=== PATIENT | male | born 1965 | race Caucasian/White ===

== ENCOUNTER 2018-07-04 11:30 | Inpatient (IN) | payer OTHER ==
[2018-07-08 14:32] VITALS: BMI 32.8
[2018-07-09] MEDS ORDERED: GENTAMICIN SO4 80 MG/2 ML VIAL ONE (07:28)
[2018-07-09] MEDS ORDERED: THROMBIN (BOVINE) 20,000 UNIT VIAL TP ONE (07:29)
[2018-07-09] MEDS ORDERED: LIDOCAINE 1%-EPI 1:100,000 30 ML MDV IJ ONE (07:29)
[2018-07-09] MEDS ORDERED: MIDAZOLAM HCL 2 MG/2 ML SINGLE DOSE VIAL ONE ×2 (07:54)
--- NOTE | 2018-07-09 07:59 | HP ---
History & Physical Update - Physical Physical: No Change - Assessment Assessment: No Change - Plan Plan: No Change (Preop medical clearance/Cardiology clearance/stress test 2018. No changes since, no h/o dvt/pe)
[2018-07-09] MEDS ORDERED: fentaNYL CITRATE 250 MCG/5 ML VIAL ONE (08:00)
[2018-07-09] MEDS ORDERED: ROCURONIUM BROMIDE 50 MG/5 ML VIAL ONE ×2 (08:00→08:37)
[2018-07-09] MEDS ORDERED: PROPOFOL 20 ML ONE ×2 (08:00)
[2018-07-09] MEDS ORDERED: ceFAZolin SODIUM 1 GM VIAL IVPB ONE (08:10)
[2018-07-09] MEDS ORDERED: VANCOMYCIN 1,000 MG VIAL (RESTRICTED TO ID ONLY) IVPB ONE (08:15)
[2018-07-09] MEDS ORDERED: LIDOCAINE HCL 1%, 10 MG/ML (20ML VIAL) NR ONE (08:25)
[2018-07-09] MEDS ORDERED: GELATIN, ABSORBABLE 12-7MM EACH SPONGE TP ONE (08:40)
[2018-07-09] MEDS ORDERED: HYDROGEN PEROXIDE 473 ML PO ONE (09:15)
[2018-07-09] MEDS ORDERED: BACITRACIN 50,000 UNITS VIAL TP ONE (09:16)
[2018-07-09] MEDS ORDERED: GENTAMICIN 80MG PREMIX BAG IVPB ONE (09:16)
[2018-07-09] MEDS ORDERED: NEOSTIGMINE METHYLSULFATE 0.5 MG/1 ML - 10 ML MDV ONE ×5 (09:36)
--- NOTE | 2018-07-09 10:01 | OP ---
Operative Note - Note: Operative Date: 07/09/18 Pre-Operative Diagnosis: C5-6 spondylosis Operation: 1. Interbody Cage. 2. C5 Caudal Hemicorpectomy with resection of osteophytes and posterior longitudnal ligament. 3. C6 Rostral Hemicorpectomy with resection of osteophytes and posterior longitudnal ligament. 4. Anterior Instrumentation C5-C6. 5. Microdissection. 6. C56 Arthrodesis. 7. Local allograft. 8. Deformity correction (caodaism of lordosis) Findings: as dictated Implants: as dictated Post-Operative Diagnosis: Same as Pre-op Surgeon: Jerald Rogers Container Filler: Yaz Mock Anesthesiologist/EMERGENCY TELECOMMUNICATIONS DISPATCHER: Sena Baldwin MD Anesthesia: General, Local Estimated Blood Loss (mls): 10 (ml) Drains & Tubes with Location: subcutaneous [place]man Drains, Volume Out (mls): 100 (ml clear urine) Fluid Volume Replaced (mls): 1,100 (LR)
[2018-07-09] MEDS ORDERED: HYDROmorphone *PCA* 10MG/50ML DISP.SYRIN PCA ONE (10:07)
[2018-07-09] MEDS ORDERED: ONDANSETRON 4 MG/2 ML VIAL IVPUSH PRN ×3 (10:10→10:32)
[2018-07-09] MEDS ORDERED: diphenhydrAMINE HCL 25 MG CAPSULE (FP) PO PRN (10:10)
[2018-07-09] MEDS ORDERED: LACTATED RINGERS SOLUTION 1,000 ML/1,000 ML INFUS.BAG IV SCH (10:15)
[2018-07-09] MEDS ORDERED: DEXAMETHASONE SOD PHOSPHATE 4 MG/1 ML VIAL IVPUSH PRN (10:32)
[2018-07-09] MEDS ORDERED: PROMETHAZINE HCL 25 MG/1 ML VIAL IVPB PRN (10:32)
[2018-07-09] MEDS ORDERED: HYDROmorphone *PCA* 10MG/50ML DISP.SYRIN PCA SCH (10:45)
[2018-07-09] MEDS ORDERED: LACTATED RINGERS SOLUTION 1,000 ML IV SCH (10:45)
[2018-07-09] MEDS: DOCUSATE SODIUM 100 MG CAPSULE (FP) PO SCH ×2 (16:30→21:29)
[2018-07-09] MEDS ORDERED: sitaGLIPtin PHOSPHATE 50 MG TABLET PO ONE (16:45)
[2018-07-09] MEDS: CEFAZOLIN 1 GM/D5W 1 GM/50 ML BAG IVPB SCH (16:55)
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
[2018-07-09] MEDS: INSULIN SLIDING SCALE (NOVOLOG) 1 VIAL SQ SCH (17:08)
[2018-07-09] MEDS: ALBUTEROL SO4 2.5/IPRATROPIUM 0.5 INH SOL 3 ML VIAL.NEB. NEB SCH (20:15)
[2018-07-09] MEDS ORDERED: INSULIN (NOVOLOG) ASPART 100 UNITS/ML 10ML VIAL ONE (21:28)
[2018-07-09] MEDS ORDERED: ATORVASTATIN CA 40 MG TABLET (FP) PO SCH (22:00)
[2018-07-10] MEDS: DOCUSATE SODIUM 100 MG CAPSULE (FP) PO SCH (06:00)
[2018-07-10] MEDS: CEFAZOLIN 1 GM/D5W 1 GM/50 ML BAG IVPB SCH ×3 (06:00→09:18)
[2018-07-10] MEDS ORDERED: PT OWN MED DRAWER 7, Y5N ONE (06:14)
[2018-07-10] MEDS ORDERED: INSULIN (NOVOLOG) ASPART 100 UNITS/ML 10ML VIAL ONE (06:20)
[2018-07-10] MEDS: INSULIN SLIDING SCALE (NOVOLOG) 1 VIAL SQ SCH (06:39)
[2018-07-10] MEDS ORDERED: LEVOTHYROXINE NA 88 MCG TABLET (FP) PO SCH (07:00)
[2018-07-10 07:07] LABS: HEMATOCRIT 41.4 % (35.4-49); HEMOGLOBIN 14.1 GM/dL (11.7-16.9); MCH 30.6 pg (25.7-33.7); MCHC 34.2 g/dl (32.0-35.9); MEAN CELL VOLUME 89.4 fl (80-96); PLATELET COUNT 227 K/MM3 (134-434); RBC 4.63 M/mm3 (4.00-5.60); RDW 14.2 % (11.9-15.9); WHITE BLOOD COUNT 14.8 K/mm3 (4.0-10.0)
[2018-07-10 07:28] LABS: ANION GAP 9 MMOL/L (8-16); BLOOD UREA NITROGEN 22 mg/dL (7-18); CALCIUM 8.2 mg/dL (8.5-10.1); CHLORIDE 102 mmol/L (98-107); CO2 27 mmol/L (21-32); CREATININE 1.4 mg/dL (0.55-1.3); GLUCOSE,RANDOM 105 mg/dL (74-106); POTASSIUM 4.2 mmol/L (3.5-5.1); SODIUM 138 mmol/L (136-145)
[2018-07-10] MEDS ORDERED: oxyCODONE HCL 5 MG TABLET PO PRN ×2 (08:06)
[2018-07-10] MEDS ORDERED: ACETAMINOPHEN 325 MG TABLET (FP) PO PRN (08:07)
[2018-07-10] MEDS: ALBUTEROL SO4 2.5/IPRATROPIUM 0.5 INH SOL 3 ML VIAL.NEB. NEB SCH (08:38)
[2018-07-10] MEDS ORDERED: LACTATED RINGERS SOLUTION 1,000 ML/1,000 ML INFUS.BAG IV SCH (09:15)
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
[2018-07-10] MEDS ORDERED: FERROUS SO4 325 MG TABLET (FP) PO SCH (10:00)
[2018-07-10] MEDS ORDERED: HYDROCHLOROTHIAZIDE 25 MG TABLET (FP) PO SCH (10:00)
[2018-07-10] MEDS ORDERED: FOLIC ACID 1 MG TABLET (FP) PO SCH (10:00)
[2018-07-10] MEDS ORDERED: LISINOPRIL 20 MG TABLET (FP) PO SCH (10:00)
[2018-07-10] MEDS ORDERED: MONTELUKAST NA 10 MG TABLET PO SCH (10:00)
[2018-07-10] MEDS ORDERED: HEPARIN NA (PORCINE) 5,000 UNITS/ML 1ML VIAL SQ SCH (10:00)
[2018-07-10] MEDS ORDERED: ATENOLOL 25 MG TABLET (FP) PO SCH ×2 (10:00)
[2018-07-10] MEDS ORDERED: PATIENT'S OWN MEDICATION (NON-FORMULARY) (Lisinopril/Hydrochlorothiazide [Lisinopril-Hctz PO SCH (10:00)
[2018-07-10 11:19] VITALS: BP 141/87; PULSE 80
[2018-07-10 11:20] VITALS: TEMP 98.3
--- NOTE | 2018-07-10 13:36 | PN ---
Progress Note (short form) - Note Progress Note: POD #1 - s/p C5-C6 ACDF under general anesthesia with HOUSEHOLD REFRIGERATOR MECHANIC for postop pain management. VSS. Pt. doing well, getting ready for discharge. HOUSEHOLD REFRIGERATOR MECHANIC discontinued. No complaints. No apparent anesthetic complications noted.
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
--- NOTE | 2018-07-11 08:39 | SURG ---
Surgery Packing Inspector Note Packing Inspector: Yaz Mock PA-C (Suzy) Date of Service: 07/09/18 Diagnosis: Cervical Spondylotic Myelopathy Procedure: 1. Interbody Cage 2. C5 Caudal Hemicorpectomy with resection of osteophytes and posterior longitudnal ligament 3. C6 Rostral Hemicorpectomy with resection of osteophytes and posterior longitudnal ligament 4. Anterior Instrumentation C5-C6 5. Microdissection 6. C56 Arthrodesis 7. Local allograft 8. Deformity correction (adventism of lordosis) I was present for the entirety of the operative procedure. For further detail, please refer to operative report. Visit type - Case Type Case Type: Scheduled - Emergency Emergency Visit: No - New patient This patient is new to me today: Yes Date on this admission: 07/11/18 - Critical Care Critical Care patient: No
== END 2018-07-10 14:24 | disposition home or self-care (01) | DRG 321 ==
LOC: JSAMEDAYSX 07-09 06:10 → J8W 07-09 16:20
PROVIDERS: ADMIT Family Medicine; ATTEND Family Medicine
PROC: 01N10ZZ Release Cervical Nerve, Open Approach (ICD-10-PCS; 2018-07-09)
PROC: 0RB30ZZ Excision of Cervical Vertebral Disc, Open Approach (ICD-10-PCS; 2018-07-09)
PROC: B01BZZZ Fluoroscopy of Spinal Cord (ICD-10-PCS; 2018-07-09)
PROC: 0RG10A0 Fusion of Cervical Vertebral Joint with Interbody Fusion Device, Anterior Approach, Anterior Column, Open Approach (ICD-10-PCS; principal; 2018-07-09 08:00)
DX: M47.12 Other spondylosis with myelopathy, cervical region (principal); M54.12 Radiculopathy, cervical region; M40.40 Postural lordosis, site unspecified; M25.78 Osteophyte, vertebrae; M43.9 Deforming dorsopathy, unspecified; E11.9 Type 2 diabetes mellitus without complications; E78.5 Hyperlipidemia, unspecified; J45.909 Unspecified asthma, uncomplicated; I10 Essential (primary) hypertension; R20.2 Paresthesia of skin; R29.898 Other symptoms and signs involving the musculoskeletal system
CPT/HCPCS: 36415; 72125-TC; 76000-TC-FY; 80048; 82962; 85027; 86850; 86900; 86901; 94640; 94760; 97116-GP; 97161-GP; J1644